=== PATIENT | female | born 1950 | race Caucasian/White ===

== ENCOUNTER 2016-12-31 13:29 | Emergency (ER) | payer OTHER, MEDICARE ==
[2016-12-31 13:52] VITALS: BP 162/70; PULSE 53; RESP 18; TEMP 97.7; O2SAT 95
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
== END 2016-12-31 14:57 | disposition home or self-care (01) ==
LOC: CED 13:29
DX: M54.5 Low back pain (principal); R53.1 Weakness; E03.9 Hypothyroidism, unspecified; E78.00 Pure hypercholesterolemia, unspecified
CPT/HCPCS: 99214-PO; G0463-PO

== ENCOUNTER → 2018-06-24 | Outpatient (CLI) | payer OTHER, MEDICARE | LOC: CIMAGING 10:54 | PROVIDERS: ATTEND Family Medicine | DX: Z12.31 Encounter for screening mammogram for malignant neoplasm of breast (principal) ==